=== PATIENT | male | born 1960 | race Caucasian/White ===

== ENCOUNTER 2019-01-27 01:40 | Inpatient (IN) | payer OTHER, MEDICAID ==
[~2019-01-27] VITALS: Ht 182.9 cm; Wt 68.5 kg
[2019-01-27 01:47] VITALS: BP_SYST 140
[2019-01-27] MEDS ORDERED: CRAN450C PO (02:27)
[2019-01-27] MEDS ORDERED: DOCU-144 PO (02:28)
[2019-01-27] MEDS ORDERED: MOM PO (02:29)
[2019-01-27] MEDS ORDERED: LEVE100S PO (02:29)
[2019-01-27] MEDS ORDERED: MULT-1100 PO (02:30)
[2019-01-27] MEDS ORDERED: ACET-2165 PO (02:31)
[2019-01-27] MEDS ORDERED: RIVA10TA PO (02:33)
[2019-01-27] MEDS ORDERED: LORazepam 2 MG/ML VIAL (FOR ER USE) IVP ONE (03:00)
[2019-01-27 03:32] LABS: BASOPHILS # (AUTO) 0.1 K/uL (0.0-0.2); BASOPHILS % (AUTO) 0.8 % (0.0-2.0); EOSINOPHILS # (AUTO) 0.2 K/uL (0.0-0.4); EOSINOPHILS % (AUTO) 2.4 % (0.0-4.0); HEMATOCRIT 38.6 % (36-54); HEMOGLOBIN 12.3 g/dL (14.0-18.0); LYMPHOCYTES # (AUTO) 1.8 K/uL (1.0-5.5); LYMPHOCYTES % (AUTO) 27.6 % (20.5-51.5); MEAN CORPUSCULAR HEMOGLOBIN 27 pg (27-31); MEAN CORPUSCULAR HGB CONC 32 % (32-36); MEAN CORPUSCULAR VOLUME 83 fL (79.0-98.0); MONOCYTES # (AUTO) 0.6 K/uL (0.0-1.0); MONOCYTES % (AUTO) 9.8 % (1.7-9.3); NEUTROPHILS # (AUTO) 3.9 K/uL (1.8-7.7); NEUTROPHILS % (AUTO) 59.4 % (40.0-70.0); PLATELET COUNT (AUTO) 330 K/uL (130-430); RED BLOOD CELL COUNT(AUTO) 4.62 MIL/uL (4.2-6.2); WHITE BLOOD COUNT (AUTO) 6.5 K/uL (4.8-10.8)
[2019-01-27 03:36] LABS: BILIRUBIN,URINE NEGATIVE (NEGATIVE); BLOOD, URINE NEGATIVE (NEGATIVE); CLARITY/URINE CLEAR (CLEAR); COLOR,URINE YELLOW (YELLOW); GLUCOSE,URINE NEGATIVE (NEGATIVE); KETONES,URINE NEGATIVE (NEGATIVE); LEUKOCYTE ESTERASE ,URINE NEGATIVE (NEGATIVE); NITRITE, URINE NEGATIVE (NEGATIVE); PH,URINE 7.5 (5.0-8.0); PROTEIN URINE NEGATIVE (NEGATIVE); UROBILINOGEN,URINE 0.2 (0.2-1.0)
[2019-01-27 03:47] LABS: CALCIUM 9.1 mg/dL (8.4-11.0); CREATININE 0.83 mg/dL (0.55-1.30); POTASSIUM 3.4 mmol/L (3.5-5.1)
[2019-01-27 03:51] LABS: ALBUMIN 3.5 g/dL (3.4-4.8); TOTAL BILIRUBIN 0.4 mg/dL (0.0-1.0)
[2019-01-27] MEDS ORDERED: PANTOPRAZOLE SODIUM 40 MG/VIAL (PROTONIX) IVP ONE (04:15)
[2019-01-27 07:35] VITALS: BP_SYST 144
[2019-01-27] MEDS: D5/0.45 NS 1,000 ML IV SCH ×2 (07:56→21:04)
[2019-01-27 08:26] VITALS: BP_SYST 144
[2019-01-27 12:13] VITALS: BP_SYST 146
[2019-01-27] MEDS ORDERED: levETIRAcetam 500 MG in NS 100 ML IV ONE (12:15)
[2019-01-27 12:16] LABS: BASOPHILS % (AUTO) 0.9 % (0.0-2.0); EOSINOPHILS # (AUTO) 0.1 K/uL (0.0-0.4); EOSINOPHILS % (AUTO) 2.5 % (0.0-4.0); HEMATOCRIT 39.1 % (36-54); HEMOGLOBIN 12.4 g/dL (14.0-18.0); LYMPHOCYTES # (AUTO) 1.3 K/uL (1.0-5.5); LYMPHOCYTES % (AUTO) 29.1 % (20.5-51.5); MEAN CORPUSCULAR HEMOGLOBIN 27 pg (27-31); MEAN CORPUSCULAR HGB CONC 32 % (32-36); MEAN CORPUSCULAR VOLUME 84 fL (79.0-98.0); MONOCYTES # (AUTO) 0.5 K/uL (0.0-1.0); MONOCYTES % (AUTO) 10.8 % (1.7-9.3); NEUTROPHILS # (AUTO) 2.6 K/uL (1.8-7.7); NEUTROPHILS % (AUTO) 56.7 % (40.0-70.0); PLATELET COUNT (AUTO) 315 K/uL (130-430); RED BLOOD CELL COUNT(AUTO) 4.67 MIL/uL (4.2-6.2); RED CELL DISTRIBUTION WIDTH 15.4 % (9.0-15.0); WHITE BLOOD COUNT (AUTO) 4.6 K/uL (4.8-10.8)
[2019-01-27 12:26] LABS: CALCIUM 9.1 mg/dL (8.4-11.0); CREATININE 0.71 mg/dL (0.55-1.30); POTASSIUM 3.6 mmol/L (3.5-5.1)
[2019-01-27 12:30] LABS: PROTHROMBIN TIME 10.7 SECS (9.5-12.5)
[2019-01-27 16:00] VITALS: BP_SYST 131
[2019-01-27 20:32] VITALS: BP_SYST 146
[2019-01-27] MEDS: PANTOPRAZOLE SODIUM 40 MG/VIAL (PROTONIX) IVP SCH (20:37)
[2019-01-27] MEDS: levETIRAcetam 500 MG in NS 100 ML IV SCH (20:37)
[2019-01-28 02:37] VITALS: BP_SYST 105
[2019-01-28 06:55] LABS: BASOPHILS % (AUTO) 0.8 % (0.0-2.0); EOSINOPHILS # (AUTO) 0.2 K/uL (0.0-0.4); EOSINOPHILS % (AUTO) 5.6 % (0.0-4.0); HEMATOCRIT 37.1 % (36-54); HEMOGLOBIN 11.7 g/dL (14.0-18.0); LYMPHOCYTES # (AUTO) 1.3 K/uL (1.0-5.5); LYMPHOCYTES % (AUTO) 32.2 % (20.5-51.5); MEAN CORPUSCULAR HEMOGLOBIN 26 pg (27-31); MEAN CORPUSCULAR HGB CONC 32 % (32-36); MEAN CORPUSCULAR VOLUME 83 fL (79.0-98.0); MONOCYTES # (AUTO) 0.5 K/uL (0.0-1.0); MONOCYTES % (AUTO) 11.8 % (1.7-9.3); NEUTROPHILS # (AUTO) 2.1 K/uL (1.8-7.7); NEUTROPHILS % (AUTO) 49.6 % (40.0-70.0); PLATELET COUNT (AUTO) 301 K/uL (130-430); RED BLOOD CELL COUNT(AUTO) 4.46 MIL/uL (4.2-6.2); RED CELL DISTRIBUTION WIDTH 15.1 % (9.0-15.0); WHITE BLOOD COUNT (AUTO) 4.2 K/uL (4.8-10.8)
[2019-01-28 06:59] LABS: CALCIUM 8.6 mg/dL (8.4-11.0); CREATININE 0.67 mg/dL (0.55-1.30); POTASSIUM 3.6 mmol/L (3.5-5.1)
[2019-01-28 08:18] VITALS: BP_SYST 124
[2019-01-28] MEDS: D5/0.45 NS 1,000 ML IV SCH ×2 (09:10→23:12)
[2019-01-28] MEDS: levETIRAcetam 500 MG in NS 100 ML IV SCH ×2 (09:10→21:08)
[2019-01-28] MEDS: PANTOPRAZOLE SODIUM 40 MG/VIAL (PROTONIX) IVP SCH ×2 (09:10→21:08)
[2019-01-28 11:40] VITALS: BP_SYST 113
[2019-01-28 16:58] VITALS: BP_SYST 133
[2019-01-28 21:06] VITALS: BP_SYST 148
[2019-01-29 00:46] VITALS: BP_SYST 124
[2019-01-29 07:24] LABS: BASOPHILS # (AUTO) 0.1 K/uL (0.0-0.2); BASOPHILS % (AUTO) 1.4 % (0.0-2.0); EOSINOPHILS # (AUTO) 0.3 K/uL (0.0-0.4); EOSINOPHILS % (AUTO) 6.7 % (0.0-4.0); HEMATOCRIT 37.5 % (36-54); HEMOGLOBIN 11.8 g/dL (14.0-18.0); LYMPHOCYTES # (AUTO) 1.1 K/uL (1.0-5.5); LYMPHOCYTES % (AUTO) 30.7 % (20.5-51.5); MEAN CORPUSCULAR HEMOGLOBIN 26 pg (27-31); MEAN CORPUSCULAR HGB CONC 31 % (32-36); MEAN CORPUSCULAR VOLUME 83 fL (79.0-98.0); MONOCYTES # (AUTO) 0.5 K/uL (0.0-1.0); MONOCYTES % (AUTO) 13.8 % (1.7-9.3); NEUTROPHILS # (AUTO) 1.8 K/uL (1.8-7.7); NEUTROPHILS % (AUTO) 47.4 % (40.0-70.0); PLATELET COUNT (AUTO) 288 K/uL (130-430); WHITE BLOOD COUNT (AUTO) 3.7 K/uL (4.8-10.8)
[2019-01-29 07:40] LABS: CALCIUM 8.4 mg/dL (8.4-11.0); CREATININE 0.75 mg/dL (0.55-1.30); POTASSIUM 3.4 mmol/L (3.5-5.1)
[2019-01-29 08:00] VITALS: BP_SYST 146
[2019-01-29] MEDS: levETIRAcetam 500 MG in NS 100 ML IV SCH ×2 (08:47→20:48)
[2019-01-29] MEDS: PANTOPRAZOLE SODIUM 40 MG/VIAL (PROTONIX) IVP SCH ×2 (08:47→20:47)
[2019-01-29] MEDS: D5/0.45 NS 1,000 ML IV SCH (12:05)
[2019-01-29 12:08] VITALS: BP_SYST 117
[2019-01-29] MEDS ORDERED: POTASSIUM CHLORIDE 20 MEQ/PKT PACKET PO ONE (14:45)
[2019-01-29 16:44] VITALS: BP_SYST 147
[2019-01-29 20:00] VITALS: BP_SYST 142
[2019-01-30 00:12] VITALS: BP_SYST 141
[2019-01-30] MEDS: D5/0.45 NS 1,000 ML IV SCH ×2 (01:46→15:30)
[2019-01-30] MEDS: MIDAZOLAM HCL 5 MG/5 ML VIAL ONE ×2 (07:03→08:36)
[2019-01-30] MEDS: fentaNYL CITRATE/PF 100 MCG/2 ML AMP ONE ×2 (07:03→08:36)
[2019-01-30 07:57] VITALS: BP_SYST 104
[2019-01-30] MEDS: levETIRAcetam 500 MG in NS 100 ML IV SCH (08:45)
[2019-01-30] MEDS: PANTOPRAZOLE SODIUM 40 MG/VIAL (PROTONIX) IVP SCH (08:45)
[2019-01-30 12:12] VITALS: BP_SYST 141
[2019-01-30 16:00] VITALS: BP_SYST 126
[2019-01-30 16:09] VITALS: BP_SYST 110
[2019-01-30 16:44] VITALS: BP_SYST 129
== END 2019-01-30 17:15 | DRG 379 ==
LOC: SED 01:40 → SMU 07:00
PROVIDERS: ADMIT Internal Medicine; ATTEND Family Medicine
PROC: 0DB68ZX Excision of Stomach, Via Natural or Artificial Opening Endoscopic, Diagnostic (ICD-10-PCS; principal; 2019-01-30 07:00)
DX: K92.2 Gastrointestinal hemorrhage, unspecified (principal); F03.90 Unspecified dementia, unspecified severity, without behavioral disturbance, psychotic disturbance, mood disturbance, and anxiety; G40.909 Epilepsy, unspecified, not intractable, without status epilepticus; D64.9 Anemia, unspecified; K20.9 Esophagitis, unspecified; K44.9 Diaphragmatic hernia without obstruction or gangrene; Z79.01 Long term (current) use of anticoagulants; Z86.73 Personal history of transient ischemic attack (TIA), and cerebral infarction without residual deficits; Z79.899 Other long term (current) drug therapy
CPT/HCPCS: 36415; 43239; 80048; 80053; 81003; 83690-TC; 85025; 85610-TC; 85730-TC; 87081; 88305; 88313; 96374; 96375; 99285; C9113; J1953; J2060; J2250; J3010; J7030

== ENCOUNTER 2019-12-28 19:27 | Emergency (ER) | payer OTHER, MEDICAID ==
[~2019-12-28] VITALS: Ht 182.9 cm; Wt 74.8 kg
[~2019-12-28 19:27] MED LIST: ACET-2165 PO; CRAN450C PO; DOCU-144 PO; LEVE100S PO; MOM PO; MULT-1100 PO; RIVA10TA PO
[2019-12-28 19:40] VITALS: BP_SYST 150
[2019-12-28 20:16] LABS: BASOPHILS % (AUTO) 0.5 % (0.0-2.0); EOSINOPHILS # (AUTO) 0.3 K/uL (0.0-0.4); EOSINOPHILS % (AUTO) 5.5 % (0.0-4.0); HEMOGLOBIN 14.2 g/dL (14.0-18.0); LYMPHOCYTES # (AUTO) 2.1 K/uL (1.0-5.5); LYMPHOCYTES % (AUTO) 36.8 % (20.5-51.5); MEAN CORPUSCULAR HEMOGLOBIN 29 pg (27-31); MEAN CORPUSCULAR HGB CONC 32 % (32-36); MEAN CORPUSCULAR VOLUME 89 fL (79.0-98.0); MONOCYTES # (AUTO) 0.6 K/uL (0.0-1.0); NEUTROPHILS # (AUTO) 2.6 K/uL (1.8-7.7); NEUTROPHILS % (AUTO) 46.2 % (40.0-70.0); PLATELET COUNT (AUTO) 280 K/uL (130-430); RED BLOOD CELL COUNT(AUTO) 4.95 MIL/uL (4.2-6.2); RED CELL DISTRIBUTION WIDTH 14.2 % (9.0-15.0); WHITE BLOOD COUNT (AUTO) 5.7 K/uL (4.8-10.8)
[2019-12-28 20:22] LABS: ANION GAP 7 (5-15); CALCIUM 9.2 mg/dL (8.4-11.0); CHLORIDE 100 mmol/L (98-107); CREATININE 0.88 mg/dL (0.55-1.30); GLUCOSE 97 mg/dL (70-99); POTASSIUM 4.1 mmol/L (3.5-5.1); SODIUM SERUM 137 mmol/L (136-145); UREA NITROGEN, BLOOD 16 mg/dL (8-21)
[2019-12-28 20:25] LABS: GFR AFRICAN AMERICAN 115 mL/min (>90)
[2019-12-28 20:28] LABS: ALANINE AMINOTRANSFERASE 20 U/L (12-78); ALBUMIN 3.6 g/dL (3.4-4.8); ASPARTATE AMINOTRANSFERASE 24 U/L (10-37); TOTAL BILIRUBIN 0.4 mg/dL (0.0-1.0)
[2019-12-28 20:29] LABS: ACETAMINOPHEN < 1 ug/mL (1-30)
[2019-12-28 20:30] LABS: ALCOHOL, BLOOD < 3 mg/dL (<10)
[2019-12-29 00:26] VITALS: BP_SYST 135
[2019-12-31 14:55] LABS: CHOLESTEROL 97 mg/dL (<200); HDL CHOLESTEROL 55 mg/dL (>45); LDL CHOLESTEROL 33 mg/dL (<100); TRIGLYCERIDES 64 mg/dL (30-150)
== END 2019-12-29 00:25 ==
LOC: SED 19:27
DX: R45.851 Suicidal ideations (principal); F03.90 Unspecified dementia, unspecified severity, without behavioral disturbance, psychotic disturbance, mood disturbance, and anxiety; Z79.899 Other long term (current) drug therapy
CPT/HCPCS: 36415; 80053; 80061; 82140; 83036; 85025; 87081; 99285; G0480; G0481; G0482